=== PATIENT | female | born 1995 | race Two or more races ===

== ENCOUNTER 2022-07-18 09:52 | Emergency (ER) | payer MEDICAID, OTHER ==
[~2022-07-18] VITALS: Ht 175.3 cm; Wt 76.8 kg
[2022-07-18] MEDS ORDERED: IBUPROFEN 800 MG TAB PO ONE (11:45)
[2022-07-18 12:00] VITALS: BP 110/65
[2022-07-18] MEDS ORDERED: IBUP800T27 PO (12:31)
[2022-07-18] MEDS ORDERED: CEPH-510 PO (12:31)
== END 2022-07-18 12:35 | disposition home or self-care (01) ==
LOC: ER 09:52
DX: S92.424A Nondisplaced fracture of distal phalanx of right great toe, initial encounter for closed fracture (principal); Z88.6 Allergy status to analgesic agent; W18.09XA Striking against other object with subsequent fall, initial encounter; Y93.89 Activity, other specified; Y92.89 Other specified places as the place of occurrence of the external cause; Y99.8 Other external cause status
CPT/HCPCS: 73630

== ENCOUNTER 2022-10-15 07:48 | Emergency (ER) | payer MEDICAID ==
[~2022-10-15] VITALS: Ht 175.3 cm; Wt 77.5 kg
[~2022-10-15 07:48] MED LIST: CEPH-510 PO; IBUP-1456 PO
[2022-10-15 08:47] VITALS: BP 121/51
[2022-10-15] MEDS ORDERED: IBUP-1454 PO (09:38)
[2022-10-15] MEDS ORDERED: CEPH250C PO (09:38)
== END 2022-10-15 09:44 | disposition home or self-care (01) ==
LOC: ER 07:48
DX: L08.9 Local infection of the skin and subcutaneous tissue, unspecified (principal); Z98.890 Other specified postprocedural states; Z79.1 Long term (current) use of non-steroidal anti-inflammatories (NSAID); Z79.899 Other long term (current) drug therapy